=== PATIENT | male | born 1985 | race African-American/Black ===

== ENCOUNTER 2023-08-03 01:14 | Emergency (ER) | payer OTHER ==
[2023-08-03] MEDS ORDERED: Ketorolac Tromethamine 30 MG (1 mL) VIAL ONE (01:45)
== END 2023-08-03 02:43 ==
LOC: EEVIPCON 01:14 → NAV ERS 01:14
DX: R07.9 Chest pain, unspecified (principal); Z87.891 Personal history of nicotine dependence; I10 Essential (primary) hypertension
CPT/HCPCS: 71045; 93005; 96374; J1885